=== PATIENT | male | born 1995 | race Caucasian/White ===

== ENCOUNTER 2017-08-16 23:08 | Emergency (ER) | payer OTHER ==
[2017-08-16 23:20] VITALS: BP 129/67; PULSE 84; RESP 16; TEMP 97.8; O2SAT 97
--- NOTE | 2017-08-16 23:44 | ED PDOC ---
HPI: Head Injury Time Seen by Provider: 08/16/17 23:25 Chief Complaint (Nursing): Trauma Chief Complaint (Provider): head injury History Per: Patient History/Exam Limitations: no limitations Injury Occurred (Timing): Hours Ago: (2) Additional History Per: Patient Additional Complaint(s): 21 y/o male presents for eval of head injury sustained 2 hours prior to arrival. Patient states he was playing soccer and another players knee hit the left side of his forehead. Patient denies LOC, states he kept playing for another 5 minutes then stopped due to feeling "wobbly". Patient now with mild left-sided headache. Denies dizziness, nausea/vomiting, extremity numbness/ weakness, vision changes. Past Medical History Reviewed: Historical Data, Nursing Documentation, Vital Signs Vital Signs: Last Vital Signs Temp 97.8 F 08/16/17 23:19 Pulse 84 08/16/17 23:19 Resp 16 08/16/17 23:19 BP 129/67 08/16/17 23:19 Pulse Ox 97 08/16/17 23:19 - Medical History PMH: No Chronic Diseases - Surgical History Surgical History: No Surg Hx - Family History Family History: States: No Known Family Hx - Living Arrangements Living Arrangements: Alone - Allergies Allergies/Adverse Reactions: Allergies Allergy/AdvReac Type Severity Reaction Status Date / Time No Known Allergies Allergy Verified 08/16/17 23:18 Review of Systems ROS Statement: Except As Marked, All Systems Reviewed And Found Negative Neurological: Positive for: Headache Physical Exam - Reviewed Nursing Documentation Reviewed: Yes Vital Signs Reviewed: Yes - Physical Exam Appears: Positive for: Well, Non-toxic, No Acute Distress Head Exam: Positive for: ATRAUMATIC, NORMAL INSPECTION, NORMOCEPHALIC Skin: Positive for: Normal Color Eye Exam: Positive for: Normal appearance, EOMI, PERRL ENT: Positive for: Normal ENT Inspection Cardiovascular/Chest: Positive for: Regular Rate, Rhythm Respiratory: Positive for: Normal Breath Sounds Gastrointestinal/Abdominal: Positive for: Normal Exam Back: Positive for: Normal Inspection Extremity: Positive for: Normal ROM Neurologic/Psych: Positive for: Alert, Oriented (x3) - ECG O2 Sat by Pulse Oximetry: 97 - Progress ED Course And Treament: offered CT but patient would like to trial meds first. Tylenol PO ordered On re-eval, patient states he is feeling better. Patient educated on findings, discharged with instructions to follow up PMD 2-3 days. Advised no contact sports for 2 weeks/until cleared by PMD Advised Tylenol PRN pain. Return to ED for worsening/concerning symptoms. Disposition - Clinical Impression Clinical Impression: Head injury - Patient ED Disposition Is Patient to be Admitted: No Counseled Patient/Family Regarding: Diagnosis, Need For Followup - Disposition Disposition: Routine/Home Disposition Time: 01:14 Condition: IMPROVED Instructions: Head Injury (ED) Forms: [facility] ED School/Work Excuse
== END 2017-08-17 01:17 | disposition home or self-care (01) ==
LOC: H.ER 23:08
DX: S09.90XA Unspecified injury of head, initial encounter (principal); W22.8XXA Striking against or struck by other objects, initial encounter; Y92.322 Soccer field as the place of occurrence of the external cause